=== PATIENT | male | born 1960 | race Caucasian/White ===

== ENCOUNTER 2022-05-30 06:25 | Inpatient (IN) ==
[2022-05-30] MEDS ORDERED: LORazepam 2 MG/ML VIAL IV ONE (06:47)
[2022-05-30] MEDS ORDERED: PIPERACILLIN SODIUM/TAZOBACTAM 3.375 GM in DEXTROSE 5% IN WATER 50 ML IV ONE (06:48)
[2022-05-30] MEDS ORDERED: VANCOMYCIN PER PHARMACY IV ONE (06:48)
[2022-05-30 06:49] LABS: POC Calcium, Ionized 1.14 (1.16-1.32); POC Creatinine 1.1 (0.6-1.2)
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
--- NOTE | 2022-05-30 07:57 | Emergency Department Note ---
ED Note Addendum Note Addendum: Received signout on this 61-year-old male with shortness of breath from my colleague at 7 AM. Patient with COPD and alcoholism presented with shortness of breath and a pulse ox in the field of 50% and 80's% here in the ER on room air. Patient normally uses oxygen at night. Patient was tachycardic at the 164 rate on BiPAP at 100% O2. Patient received 1 mg of Ativan. Chest x-ray showed right middle lobe infiltrate. I reevaluated the patient at 0730. The heart rate had decreased from 1 64-1 40. His O2 sat was 95% on 90% which was reduced from 100%. He still on BiPAP. I reevaluated the patient at 0835. His heart rate had now come down to 124. His pulse ox was 97% and that was on 85% oxygen. Patient stated that he felt better. He was not diaphoretic. I reevaluated the patient at 0910. Heart rate has now come down to 117. Pulse ox is 97% on 85% O2. Patient states he is feeling better. I have placed a call to the house manager that the patient will need to be admitted for pneumonia with respiratory failure on BiPAP. I informed Dr. Carmen at this time and he requested that I inform house manager. [id number]: supervisor production department and Dr. Carmen called back. Patient was excepted for admission and will go to the ICU because he is on BiPAP. Dr. Pratt requested and I ordered an alcohol level. At this time the patient's pulse ox is 98% on 60% oxygen via BiPAP with a pulse of 110. This was a critical care case critical care time exceeded 30 minutes exclusive of all procedures. Patient required critical care because of his respiratory failure requiring highest level of care and attention. This critical care note is not in addition to any critical care note written by Dr. Givens but if he did not include a critical care note then here is the critical care note.
[2022-05-30] MEDS ORDERED: VANCOMYCIN 1,500 MG in 0.9 % SODIUM CHLORIDE 500 ML IV ONE (08:00)
[2022-05-30 08:18] LABS: ALT/SGPT 12 U/L (<40); AST/SGOT 17 U/L (<40); Albumin 3.4 gm/dL (3.2-5.2); Alkaline Phosphatase 119 U/L (39-117); Bilirubin,Direct 0.3 mg/dL (<0.3); Bilirubin,Total 0.7 mg/dL (0.1-1.0); Globulin 3.4 gm/dL (2.2-3.7)
[2022-05-30 08:19] LABS: proBNP 423.7 pg/mL (<125.0)
--- NOTE | 2022-05-30 08:38 | XRay Report ---
HISTORY: Short of breath, fever and weakness FINDINGS: There is a large consolidating infiltrate in the central portion of the right lung. A more diffuse alveolar infiltrate is seen in the right lower lobe. The left lung is clear but hyperinflated. The heart size is normal. No pleural effusion is detected. The infiltrate is new since 02/20/22 IMPRESSION: Severe right-sided pneumonia, predominantly in a perihilar distribution Interpreted and Authenticated by: Neri Alonso 05/30/22
[2022-05-30 09:43] LABS: Basophils # (Auto) 0.11 K/mcL (0.00-0.30); Basophils % (Auto) 0.4 % (0.0-2.0); Eosinophils # (Auto) 0.38 K/mcL (0.00-0.70); Eosinophils % (Auto) 1.2 % (0.0-7.0); Hematocrit 41.4 % (40.1-51.0); Hemoglobin 13.8 g/dL (13.7-17.5); Lymphocytes # (Auto) 3.67 K/mcL (1.50-4.80); Lymphocytes % (Auto) 11.7 % (15.5-49.0); Mean Cell Volume 100.7 fL (80.0-100.0); Mean Corpuscular HGB Conc 33.3 g/dL (31.0-36.0); Mean Platelet Volume 10.4 fL (8.8-12.5); Monocytes # (Auto) 4.67 K/mcL (0.10-0.90); Monocytes % (Auto) 14.9 % (1.0-12.0); Platelet Count 324 K/mcL (140-440); RBC 4.11 M/mcL (4.63-6.08); Red Cell Distribution Width 12.7 % (11.5-14.5); WBC 31.4 K/mcL (4.5-11.0)
[2022-05-30 10:56] LABS: Neutrophils % (Auto) 69.8 % (38.0-78.0)
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
[2022-05-30 12:58] LABS: Alcohol, Blood < 10.0 mg/dL; Alcohol,Blood < 0.010 gm/dL (<0.010)
[2022-05-30] MEDS ORDERED: ACETAMINOPHEN 325 MG TABLET PO PRN (14:30)
[2022-05-30] MEDS ORDERED: HALOPERIDOL LACTATE 5 MG/ML VIAL IV PRN (14:30)
[2022-05-30] MEDS ORDERED: LORazepam 2 MG/ML VIAL IV PRN ×2 (14:30)
[2022-05-30] MEDS ORDERED: POTASSIUM CHLORIDE 20 MEQ, MAGNESIUM SULFATE 16.24 MEQ, THIAMINE 100 MG, MVI, ADULT NO.... IV SCH (14:30)
[2022-05-30] MEDS ORDERED: 0.9 % SODIUM CHLORIDE 10 ML SYRINGE IV SCH (14:30)
[2022-05-30] MEDS ORDERED: cloNIDine HCL 0.1 MG TABLET PO PRN (14:30)
[2022-05-30] MEDS ORDERED: ONDANSETRON 4 MG/2 ML VIAL IV PRN (14:30)
[2022-05-30] MEDS ORDERED: VANCOMYCIN PER PHARMACY IV SCH (14:30)
[2022-05-30] MEDS: IPRATROPIUM/ALBUTEROL 3 ML AMPUL.NEB NEB SCH ×3 (15:04→23:09)
[2022-05-30] MEDS: POTASSIUM CHLORIDE 20 MEQ, MAGNESIUM SULFATE 16.24 MEQ, THIAMINE 100 MG, MVI, ADULT NO.... IV ONE ×2 (15:07→15:25)
[2022-05-30] MEDS: 0.9 % SODIUM CHLORIDE 10 ML SYRINGE IV SCH ×2 (15:07→20:24)
[2022-05-30] MEDS: methylPREDNISolone SOD SUCC 125 MG/2 ML VIAL IV SCH ×2 (15:09→21:53)
[2022-05-30] MEDS ORDERED: POTASSIUM CHLORIDE 20 MEQ, MAGNESIUM SULFATE 16.24 MEQ, THIAMINE 100 MG, MVI, ADULT NO.... IV ONE (15:30)
[2022-05-30] MEDS: PIPERACILLIN SODIUM/TAZOBACTAM 3.375 GM in DEXTROSE 5% IN WATER 50 ML IV SCH ×3 (15:54→23:41)
[2022-05-30] MEDS: 0.9 % SODIUM CHLORIDE 1,000 ML IV SCH (16:42)
[2022-05-30] MEDS ORDERED: HYDROcodone/APAP 5/325MG TABLET PO PRN (19:34)
[2022-05-30] MEDS: Budesonide-Glycopyr-Formoterol [Breztri] Inhaler INH SCH (19:37)
[2022-05-30] MEDS: ACAMPROSATE 333 MG PO SCH (19:41)
[2022-05-30] MEDS: DOCUSATE SODIUM 100 MG CAPSULE PO SCH (20:13)
[2022-05-30] MEDS: ATORVASTATIN 10 MG TABLET PO SCH (20:23)
[2022-05-30] MEDS: diphenhydrAMINE 25 MG CAPSULE PO PRN (20:23)
[2022-05-30] MEDS: GABAPENTIN 300 MG CAPSULE PO SCH (20:23)
[2022-05-30] MEDS: VANCOMYCIN 1,500 MG in 0.9 % SODIUM CHLORIDE 500 ML IV SCH (20:24)
[2022-05-31] MEDS: 0.9 % SODIUM CHLORIDE 1,000 ML IV SCH ×4 (00:32→21:46)
[2022-05-31 00:44] LABS: Amphetamine Screen,Urine None detected; Barbiturate Screen,Urine None detected; Benzodiazepines Screen,Urine None detected; Cannabinoid Screen,Urine None detected; Cocaine Screen,Urine None detected; Opiate Screen,Urine None detected; Oxycodone, Urine Screen None detected; Phencyclidine Screen,Urine None detected
[2022-05-31] MEDS: IPRATROPIUM/ALBUTEROL 3 ML AMPUL.NEB NEB SCH ×6 (02:36→22:44)
[2022-05-31] MEDS: guaiFENesin/DEXTROMETHORPHAN 5ML UD CUP PO PRN ×5 (04:02→23:41)
[2022-05-31] MEDS: PIPERACILLIN SODIUM/TAZOBACTAM 3.375 GM in DEXTROSE 5% IN WATER 50 ML IV SCH ×4 (05:47→23:45)
[2022-05-31] MEDS: methylPREDNISolone SOD SUCC 125 MG/2 ML VIAL IV SCH ×3 (05:47→21:47)
[2022-05-31] MEDS: 0.9 % SODIUM CHLORIDE 10 ML SYRINGE IV SCH ×3 (05:48→20:42)
--- NOTE | 2022-05-31 07:01 | Internal Med Progress Note ---
SUBJECTIVE Subjective Patient information: Note initiated : 05/31/22 at 6:55 am Service Date, if different from initiated Date: [] Patient: Juan Oliver a 61 y/o M admitted on 05/30/22 for Shortness of breath. Chief Complaint: [] Interval history: Mr. Oliver is a 61 year old M he is history of alcoholism, COPD, depression/anxiety, hyper triglyceridemia, presenting with 1 day history of acute onset shortness of breath, with associated productive cough and respiratory wheezings. No prior similar episode. Last night he had acute onset shortness of breath with associated productive cough and respiratory wheezings. He is complaining of yellow sputum productions. He denies any subjective fever, chills, or diaphoresis. He denies any chest pain or palpitations. He drink bourbon on a daily basis he drinks about 2 pints per day with last drink yesterday. He called EMS for acute onset shortness of breath and when EMS arrived, he was found to have oxygen saturations in the 50s. When he arrived to our ED during the middle of the night, he is oxygen saturations was found to be in the 80s. He was started on BiPAP. Chest x-ray showing ri ght-sided pneumonia. Madison negative, COVID PCR pending. Serum alcohol level pending. Admission request was called for acute respiratory failure with hypoxia with differential diagnosis of committee acquired pneumonia versus aspiration pneumonia with associated COPD exacerbations and potential alcohol withdrawal. 05/31: Patient is still on BiPAP, only tolerated off the BiPAP for couple minutes at a time multiple times yesterday and overnight. Current BiPAP setting 14/6 cmH2), RR 8, FiO2 35%. CoVID PCR negative. Pass swallowing evaluation, tolerating food fine. Blood cultures no growth to date. Afebrile overnight. CIWA score 0. Patient is feeling improving degree of shortness of breath. He is complaining of cough but denies any respiratory wheezing. He is complaining of shaking chil ls but denies any subjective fever or diaphoresis. He denies insomnia. He denies agitations or anxiety. He is showing mild bilateral head shakes. He denies any nausea vomiting. No reported seizures overnight. Continue to wean BiPAP as tolerated by the patient's. Continue vancomycin and Zosyn and IV fluid for pneumonia. Continue Solu-Medrol and DuoNeb breathing treatment for COPD exacerbations. Continue CIWA protocol. Pending physical therapy evaluation and treatment. We will keep the patient in the ICU. Constitutional Vitals: Vital Signs Temp Pulse Resp BP Pulse Ox O2 Del Method O2 Flow Rate 36.3 C 93 H 25 H 97/74 96 5 05/31/22 04:01 05/31/22 06:01 05/31/22 06:01 05/31/22 06:01 05/31/22 06:01 05/31/22 04:01 05/30/22 18:01 Period Temp Pulse Resp BP Sys/Bhatt Pulse Ox O2 Del Method O2 Flow Rate Last 24 Hr 36.2 C-37.5 C 82-162 18-40 86-128/62-107 93-100 BiPAP-High Flow Nasal Cannula, Bubble Humidifier 5 Intake and Output 05/30/22 05/31/22 05/31/22 19:59 03:59 11:59 Intake Total 650 2565 50 Output Total 375 1000 Balance 275 1565 50 Weight 84.005 kg 84.141 kg Intake & Output: Intake & Output 05/30/22 05/31/22 05/31/22 19:59 03:59 11:59 Intake Total 650 2565 50 Output Total 375 1000 Balance 275 1565 50 Weight 84.005 kg 84.141 kg Intake: IV 50 1625 50 Zosyn 3.375 gm In Dextrose 5% 50 100 50 in Water 50 ml @ 100 mls/hr IV Q6H [facility] Rx#:[id number] Potassium Chloride 20 Meq 1025 Magnesium Sulfate 16.24 Meq Vitamin B1 100 mg Infuvite Adult 10 ml In Sodium Chloride 0.9% 1,000 ml @ 100 mls/hr IV . [id number] Rx#:[id number] Vancomycin 1,500 mg In Sodium 500 Chloride 0.9% 500 ml @ 333.3 mls/hr IV Q12H [facility] Rx#: [id number] Oral 600 940 Output: Void Amount 375 1000 # of times incontinent of urine 0 Other: Meal Dinner Percent of Meal Consumed 25% Feeding Ability Independent Urine Appearance Clear Clear Urine Color Light Megha Dark Yellow # Voids 0 # Bowel Movements 0 # of times incontinent of 0 Bowels General appearance: cooperative and no acute distress Head Head exam: Present atraumatic and normal inspection Eye Eye exam: Present normal appearance ENT ENT exam: Present mucous membranes moist, normal exam and normal external ear exam Additional comments: BiPAP Neck Neck exam: Present normal inspection Respiratory Respiratory exam: Present rhonchi and wheezes Cardiovascular Cardiovascular exam: Present normal rate and rhythm GI/Abdominal GI/Abdominal exam: Present normal bowel sounds Back Exam Back exam: Present normal inspection Neurological Exam Neurological exam: Present alert and oriented X3 Skin Skin exam: Present intact and warm OBJ DATA Labs CBC & Chem 7: 05/30/22 07:08 05/31/22 05:13 Labs: Abnormal Lab Results 05/30/22 05/30/22 05/30/22 07:08 07:08 07:08 WBC 31.4 H* RBC 4.11 L MCV 100.7 H Immature Gran % (Auto) 2.0 H Lymph % (Auto) 11.7 L Banks % (Auto) 14.9 H Banks # (Auto) 4.67 H Immature Gran # 0.64 H Absolute Neutrophils 21.91 H POC Sodium POC Chloride POC Glucose POC WB Ioniz Calcium Direct Bilirubin 0.3 H Alkaline Phosphatase 119 H NT-Pro-B Natriuret Pep 423.7 H Procalcitonin 1.98 H 05/30/22 06:45 WBC RBC MCV Immature Gran % (Auto) Lymph % (Auto) Banks % (Auto) Banks # (Auto) Immature Gran # Absolute Neutrophils POC Sodium 129 L POC Chloride 94 L POC Glucose 157 H POC WB Ioniz Calcium 1.14 L Direct Bilirubin Alkaline Phosphatase NT-Pro-B Natriuret Pep Procalcitonin Meds: Medications Acetaminophen (Acetaminophen 325 Mg Tablet) 650 mg PO Q4-6HP PRN; Protocol PRN Reason: Per Pain Protocol/Fever > 101 Hydrocodone Bitart/Acetaminophen (Hydrocodone/Apap 5/325mg Tablet) 0.5 tab PO QDAY PRN PRN Reason: Pain Albuterol/Ipratropium (Ipratropium/Albuterol 3 Ml Ampul.Neb) 3 ml NEB Q4HRT [facility] Last Admin: 05/31/22 06:55 Dose: 3 ml Atorvastatin Calcium (Atorvastatin 10 Mg Tablet) 10 mg PO HS [facility] Last Admin: 05/30/22 20:23 Dose: 10 mg Clonidine HCl (Clonidine Hcl 0.1 Mg Tablet) 0.1 mg PO Q4HP PRN PRN Reason: ALC Diphenhydramine HCl (Diphenhydramine 25 Mg Capsule) 50 mg PO HSP PRN PRN Reason: Sleep Last Admin: 05/30/22 20:23 Dose: 50 mg Docusate Sodium (Docusate Sodium 100 Mg Capsule) 100 mg PO BID [facility] Last Admin: 05/30/22 20:13 Dose: Not Given Enoxaparin Sodium (Enoxaparin 40 Mg/0.4 Ml Syringe) 40 mg SQ DAILY [facility] Fenofibrate (Fenofibrate 43 Mg Capsule) 43 mg PO DAILY [facility] Fluoxetine HCl (Fluoxetine Hcl 20 Mg Capsule) 20 mg PO QDAY [facility] Folic Acid (Folic Acid 1 Mg Tablet) 1 mg PO DAILY [facility] Gabapentin (Gabapentin 300 Mg Capsule) 300 mg PO TID [facility] Last Admin: 05/30/22 20:23 Dose: 300 mg Guaifenesin (Guaifenesin/Dextromethorphan Oral Veronica) 10 ml PO Q4HP PRN PRN Reason: Cough Last Admin: 05/31/22 04:02 Dose: 10 ml Haloperidol Lactate (Haloperidol Lactate 5 Mg/Ml Vial) 0.5 mg IV Q2HP PRN PRN Reason: Alcohol Withdrawal/Assess CIWA Sodium Chloride (Sodium Chloride 0.9%) 1,000 mls @ 100 mls/hr IV .Q10H [facility] Last Admin: 05/31/22 01:12 Dose: 100 mls/hr Piperacillin Sod/Tazobactam (Sod 3.375 gm/ Dextrose) 50 mls @ 100 mls/hr IV Q6H [facility]; Protocol Last Infusion: 05/31/22 06:23 Dose: Infused Vancomycin HCl 1,500 mg/ (Sodium Chloride) 500 mls @ 333.3 mls/hr IV Q12H [facility] Last Infusion: 05/30/22 22:00 Dose: Infused Iron Carb/Multivit/[facility]/Folic Acid (Multivit,Ther Iron,Ca,Fa & Min 1 Tablet) 1 tab PO DAILY [facility] Lorazepam (Lorazepam 2 Mg/Ml Vial) 0 mg IV UD PRN; Protocol PRN Reason: Alcohol Withdrawal/Assess CIWA Lorazepam (Lorazepam 2 Mg/Ml Vial) 2 mg IV Q2-4HP PRN PRN Reason: Seizure Activity Methylprednisolone Sodium Succinate (Methylprednisolone Sod Succ 125 Mg/2 Ml Vial) 80 mg IV Q8 [facility] Last Admin: 05/31/22 05:47 Dose: 80 mg Omeprazole (Omeprazole 20 Mg Capsule) 20 mg PO DAILY [facility] Ondansetron HCl (Ondansetron 4 Mg/2 Ml Vial) 4 mg IV Q4-6HP PRN; Protocol PRN Reason: Nausea And Vomiting Pantoprazole Sodium (Pantoprazole 40 Mg Tablet) 40 mg PO QAMAC [facility] Acamprosate 333 Mg Tablet,Delayed Release (Dr/Ec) 2 dose PO BID [facility] Last Admin: 05/30/22 19:41 Dose: Not Given Budesonide-Glycopyr- Formoterol [Breztri] Inhaler 2 dose INH BID [facility] Last Admin: 05/30/22 19:37 Dose: 2 dose Senna (Sennosides 1 Tablet) 1 tab PO DAILY [facility] Sodium Chloride (0.9 % Sodium Chloride 10 Ml Syringe) 10 ml IV Q8 [facility] Last Admin: 05/31/22 05:48 Dose: 10 ml Thiamine HCl (Thiamine 100 Mg Tablet) 100 mg PO QDAY [facility] Vancomycin HCl (Vancomycin Per Pharmacy) 1 order IV UD [facility]; Protocol A/P Assessment and plan (1) Acute respiratory failure with hypoxia: Status: Acute (2) Delirium tremens: Status: Acute (3) Aspiration pneumonia: Status: Acute (4) Depression: Status: Chronic Qualifiers: Depression Type: unspecified Qualified Code(s): F32.9 - Major dep ressive disorder, single episode, unspecified (5) Anxiety: Status: Chronic (6) COPD exacerbation: Status: Acute (7) Hypertriglyceridemia: Status: Chronic Narrative A/P Narrative: Assessment and Plans: 1. Acute respiratory failure with hypoxia: DDx: Community acquired pneumonia, aspiration pneumonia, CoVID pneumonia, COPD with exacerbation Inpatient ICU Passed bedside swallowing evaluation, tolerating feed Supplemental oxygen therapy, currently in BiPAP 14/6 cmH2o, RR 8, FiO2 35%. Wean down/off BiPAP as tolerated by patient CoVID PCR negative VBG pending Serial lactic acid 1.9 Procalcitonin level 1.98 Blood culture, no growth to date cbc w/ auto diff in the morning to trend WBC MRSA screening pending Vancomycin Zosyn Solu-Medrol DuoNEB [facility] Physical therapy evaluation and treatment 2. History of alcohol abuse with impending delirium tremens: Serum alcohol level Urine drug screen all negative [place] protocol with banana bags x1 Ativan IV as needed seizure activities Acamprosate garden center manager referral 3. Depression/Anxiety: Fluoxetine Gabapentin 4. Hypertriglyceridemia: Fenofibrate Crestor GI ppx: PPI DVT ppx: Lovenox Code status: Full Prognosis: guarded Disposition: inpatient ICU; PT Critical Care Time: 60min Time Spent With Patient Time: Total time spent is greater than 50% in coordination of care (as documented) at patient's floor/unit and/or counseling patient: Critical Care Time: Yes Total Critical Care Time: 60 QUALITY VTE Deep Vein Thrombosis/Pulmonary Embolism Present on Admission: No
[2022-05-31 07:06] LABS: ALT/SGPT 18 U/L (<40); AST/SGOT 26 U/L (<40); Albumin 2.2 gm/dL (3.2-5.2); Albumin/Globulin Ratio 0.6 (1.0-2.3); Alkaline Phosphatase 77 U/L (39-117); Bilirubin,Total 0.4 mg/dL (0.1-1.0); Blood Urea Nitrogen 18 mg/dL (8-23); Calcium 8.4 mg/dL (8.6-10.4); Carbon Dioxide 25 mmol/L (22-30); Chloride 99 mmol/L (96-108); Globulin 3.5 gm/dL (2.2-3.7); Glomerular Filtration Rate 94; Glucose 165 mg/dL (70-105); Phosphorous 1.7 mg/dL (2.5-4.5)
[2022-05-31 07:17] LABS: Basophils # (Auto) 0.04 K/mcL (0.00-0.30); Basophils % (Auto) 0.6 % (0.0-2.0); Eosinophils # (Auto) 0 K/mcL (0.00-0.70); Eosinophils % (Auto) 0 % (0.0-7.0); Hematocrit 37.1 % (40.1-51.0); Hemoglobin 11.8 g/dL (13.7-17.5); Lymphocytes # (Auto) 0.35 K/mcL (1.50-4.80); Lymphocytes % (Auto) 5.1 % (15.5-49.0); Mean Cell Volume 104.8 fL (80.0-100.0); Mean Corpuscular HGB Conc 31.8 g/dL (31.0-36.0); Monocytes # (Auto) 0.65 K/mcL (0.10-0.90); Monocytes % (Auto) 9.5 % (1.0-12.0); Platelet Count 164 K/mcL (140-440); RBC 3.54 M/mcL (4.63-6.08); Red Cell Distribution Width 12.6 % (11.5-14.5); WBC 6.9 K/mcL (4.5-11.0)
[2022-05-31] MEDS: OMEPRAZOLE 20 MG CAPSULE PO SCH (07:26)
[2022-05-31] MEDS: ACAMPROSATE 333 MG PO SCH (07:26)
[2022-05-31] MEDS ORDERED: PANTOPRAZOLE 40 MG TABLET PO SCH (07:30)
[2022-05-31] MEDS: THIAMINE 100 MG TABLET PO SCH (08:06)
[2022-05-31] MEDS: FENOFIBRATE 43 MG CAPSULE PO SCH (08:06)
[2022-05-31] MEDS: SENNOSIDES 1 TABLET PO SCH (08:07)
[2022-05-31] MEDS: FOLIC ACID 1 MG TABLET PO SCH (08:07)
[2022-05-31] MEDS: DOCUSATE SODIUM 100 MG CAPSULE PO SCH ×2 (08:07→19:27)
[2022-05-31] MEDS: GABAPENTIN 300 MG CAPSULE PO SCH ×3 (08:07→20:41)
[2022-05-31] MEDS: ENOXAPARIN 40 MG/0.4 ML SYRINGE SQ SCH (08:07)
[2022-05-31] MEDS: FLUoxetine HCL 20 MG CAPSULE PO SCH (08:07)
[2022-05-31] MEDS: MULTIVIT,THER IRON,CA,FA & MIN 1 TABLET PO SCH (08:07)
[2022-05-31 08:23] LABS: Neutrophils % (Auto) 84.2 % (38.0-78.0)
[2022-05-31 08:39] LABS: ABG Methemoglobin 0 % (0.4-1.5); Total Hemoglobin 13.1 gm/Dl (13.5-16.5); VBG Base Excess 0 (-2-3); VBG HCO3 23.2 mmol/L (24.0-28.0); VBG Oxygen Saturation 85.4 % (40.0-70.0); VBG PCO2 34.2 mmHg (41.0-51.0); VBG PH 7.45 U (7.32-7.42); VBG PO2 52.2 mmHg (25.0-40.0); VBG Total CO2 24.2 mmol/L (25.0-29.0)
[2022-05-31] MEDS: Budesonide-Glycopyr-Formoterol [Breztri] Inhaler INH SCH ×2 (08:47→23:45)
[2022-05-31] MEDS: VANCOMYCIN 1,500 MG in 0.9 % SODIUM CHLORIDE 500 ML IV SCH (09:31)
[2022-05-31] MEDS: ATORVASTATIN 10 MG TABLET PO SCH (20:41)
[2022-05-31] MEDS: diphenhydrAMINE 25 MG CAPSULE PO PRN (20:41)
[2022-06-01] MEDS: IPRATROPIUM/ALBUTEROL 3 ML AMPUL.NEB NEB SCH ×6 (03:00→22:53)
[2022-06-01] MEDS: guaiFENesin/DEXTROMETHORPHAN 5ML UD CUP PO PRN ×2 (03:36→09:40)
[2022-06-01] MEDS: methylPREDNISolone SOD SUCC 125 MG/2 ML VIAL IV SCH ×3 (05:24→21:12)
[2022-06-01] MEDS: 0.9 % SODIUM CHLORIDE 10 ML SYRINGE IV SCH ×3 (05:24→21:12)
[2022-06-01] MEDS: PIPERACILLIN SODIUM/TAZOBACTAM 3.375 GM in DEXTROSE 5% IN WATER 50 ML IV SCH ×3 (05:25→17:15)
[2022-06-01 06:37] LABS: Basophils # (Auto) 0.01 K/mcL (0.00-0.30); Basophils % (Auto) 0.2 % (0.0-2.0); Eosinophils # (Auto) 0 K/mcL (0.00-0.70); Eosinophils % (Auto) 0 % (0.0-7.0); Hematocrit 32.5 % (40.1-51.0); Hemoglobin 10.7 g/dL (13.7-17.5); Lymphocytes # (Auto) 0.39 K/mcL (1.50-4.80); Lymphocytes % (Auto) 6.5 % (15.5-49.0); Mean Cell Volume 102.5 fL (80.0-100.0); Mean Corpuscular HGB Conc 32.9 g/dL (31.0-36.0); Mean Platelet Volume 10.9 fL (8.8-12.5); Monocytes # (Auto) 0.55 K/mcL (0.10-0.90); Monocytes % (Auto) 9.1 % (1.0-12.0); Neutrophils % (Auto) 82.5 % (38.0-78.0); Platelet Count 179 K/mcL (140-440); RBC 3.17 M/mcL (4.63-6.08); Red Cell Distribution Width 12.4 % (11.5-14.5)
[2022-06-01 07:02] LABS: Phosphorous 1.5 mg/dL (2.5-4.5)
--- NOTE | 2022-06-01 07:04 | EKG ---
[facility] Test Date: 2022-05-30 Pat Name: Juan Oliver Department: ED Room: Gender: Male Vat Overhauler: PARKER : 1960 Requested By: Greg Givens Order Number: [id number] Reading MD: Chris Alonso M.D. Measurements Intervals [place] Rate: 159 P: 85 ND: 155 QRS: -63 QRSD: 105 T: 37 QT: 311 QTc: 507 Interpretive Statements Supraventricular tachycardia Ventricular premature complex Possible Inferior infarct, old Electronically Signed On 06-01-2022 7:04:28 PST by Chris Alonso M.D. /store/[id number]
[2022-06-01 07:07] LABS: ALT/SGPT 24 U/L (<40); AST/SGOT 26 U/L (<40); Albumin 2.3 gm/dL (3.2-5.2); Albumin/Globulin Ratio 0.7 (1.0-2.3); Alkaline Phosphatase 61 U/L (39-117); Bilirubin,Total 0.3 mg/dL (0.1-1.0); Blood Urea Nitrogen 22 mg/dL (8-23); Calcium 8.3 mg/dL (8.6-10.4); Carbon Dioxide 25 mmol/L (22-30); Chloride 104 mmol/L (96-108); Globulin 3.2 gm/dL (2.2-3.7); Glomerular Filtration Rate 100; Glucose 149 mg/dL (70-105)
[2022-06-01] MEDS: DOCUSATE SODIUM 100 MG CAPSULE PO SCH ×2 (08:42→21:14)
[2022-06-01] MEDS: SENNOSIDES 1 TABLET PO SCH (08:43)
[2022-06-01] MEDS: FOLIC ACID 1 MG TABLET PO SCH (08:50)
[2022-06-01] MEDS: MULTIVIT,THER IRON,CA,FA & MIN 1 TABLET PO SCH (08:50)
[2022-06-01] MEDS: OMEPRAZOLE 20 MG CAPSULE PO SCH (08:50)
[2022-06-01] MEDS: FENOFIBRATE 43 MG CAPSULE PO SCH (08:50)
[2022-06-01] MEDS: FLUoxetine HCL 20 MG CAPSULE PO SCH (08:50)
[2022-06-01] MEDS: ENOXAPARIN 40 MG/0.4 ML SYRINGE SQ SCH (08:51)
[2022-06-01] MEDS: THIAMINE 100 MG TABLET PO SCH (08:51)
[2022-06-01] MEDS: GABAPENTIN 300 MG CAPSULE PO SCH ×3 (08:51→21:11)
[2022-06-01] MEDS: 0.9 % SODIUM CHLORIDE 1,000 ML IV SCH (08:55)
[2022-06-01] MEDS: Budesonide-Glycopyr-Formoterol [Breztri] Inhaler INH SCH ×2 (09:03→21:26)
--- NOTE | 2022-06-01 09:29 | Internal Med Progress Note ---
SUBJECTIVE Subjective Patient information: Note initiated : 06/01/22 at 9:26 am Service Date, if different from initiated Date: [] Patient: Juan Oliver a 61 y/o M admitted on 05/30/22 for Shortness of breath. Chief Complaint: [] Interval history: Mr. Oliver is a 61 year old M he is history of alcoholism, COPD, depression/anxiety, hyper triglyceridemia, presenting with 1 day history of acute onset shortness of breath, with associated productive cough and respiratory wheezings. No prior similar episode. Last night he had acute onset shortness of breath with associated productive cough and respiratory wheezings. He is complaining of yellow sputum productions. He denies any subjective fever, chills, or diaphoresis. He denies any chest pain or palpitations. He drink bourbon on a daily basis he drinks about 2 pints per day with last drink yesterday. He called EMS for acute onset shortness of breath and when EMS arrived, he was found to have oxygen saturations in the 50s. When he arrived to our ED during the middle of the night, he is oxygen saturations was found to be in the 80s. He was started on BiPAP. Chest x-ray showing ri ght-sided pneumonia. [place] negative, COVID PCR pending. Serum alcohol level pending. Admission request was called for acute respiratory failure with hypoxia with differential diagnosis of committee acquired pneumonia versus aspiration pneumonia with associated COPD exacerbations and potential alcohol withdrawal. 05/31: Patient is still on BiPAP, only tolerated off the BiPAP for couple minutes at a time multiple times yesterday and overnight. Current BiPAP setting 14/6 cmH2), RR 8, FiO2 35%. CoVID PCR negative. Pass swallowing evaluation, tolerating food fine. Blood cultures no growth to date. Afebrile overnight. CIWA score 0. Patient is feeling improving degree of shortness of breath. He is complaining of cough but denies any respiratory wheezing. He is complaining of shaking chil ls but denies any subjective fever or diaphoresis. He denies insomnia. He denies agitations or anxiety. He is showing mild bilateral head shakes. He denies any nausea vomiting. No reported seizures overnight. Continue to wean BiPAP as tolerated by the patient's. Continue vancomycin and Zosyn and IV fluid for pneumonia. Continue Solu-Medrol and DuoNeb breathing treatment for COPD exacerbations. Continue CIWA protocol. Pending physical therapy evaluation and treatment. We will keep the patient in the ICU. 06/01: CIWA score 3 as of this morning. Patient was BiPAP INDEPENDENT, and currently on room air. c/o improving degree of shortness of breath. Denies cough or wheezing at the morning. Transfer from ICU to [facility] telemetry. Continue CIWA protocol. MRSA screening negative: d/c Vancomycin. Saline lock. Continue Zosyn. Continue Solu-medrol. Continue DuoNEB. Physical therapy evaluation and treatment. Constitutional Vitals: Vital Signs Temp Pulse Resp BP Pulse Ox O2 Del Method O2 Flow Rate 36.7 C 104 H 55 H 104/76 95 0.5 06/01/22 08:00 06/01/22 09:00 06/01/22 09:00 06/01/22 09:00 06/01/22 09:00 06/01/22 08:00 06/01/22 08:00 Period Temp Pulse Resp BP Sys/Bhatt Pulse Ox O2 Del Method O2 Flow Rate Last 24 Hr 36.2 C-37.2 C 86-106 16-55 92-118/58-76 90-97 BiPAP-Room Air, BiPAP 0.5-1 Intake and Output 05/31/22 06/01/22 06/01/22 19:59 03:59 11:59 Intake Total 8054 723 9462 Output Total 400 950 Balance 1525 -175 1350 Weight 86.324 kg Intake & Output: Intake & Output 05/31/22 06/01/22 06/01/22 19:59 03:59 11:59 Intake Total 4302 628 3426 Output Total 400 950 Balance 1525 -175 1350 Weight 86.324 kg Intake: IV 273 588 7764 Sodium Chloride 0.9% 1,000 ml @ 139 063 5112 100 mls/hr IV .Q10H SERAFIN Rx#: [id number] Zosyn 3.375 gm In Dextrose 5% 50 50 50 in Water 50 ml @ 100 mls/hr IV Q6H SERAFIN Rx#:[id number] Oral 1300 300 300 Output: Void Amount 400 950 Other: Meal Dinner Percent of Meal Consumed 75% Feeding Ability Independent Urine Color Light Megha Stool Size Large Stool Color Brown Stool Consistency Loose # Bowel Movements 1 Head Head exam: Present atraumatic and normal inspection Eye Eye exam: Present normal appearance ENT ENT exam: Present mucous membranes moist, normal exam and normal external ear exam Neck Neck exam: Present normal inspection Respiratory Respiratory exam: Present normal respiratory exam and rhonchi Cardiovascular Cardiovascular exam: Present normal rate and rhythm GI/Abdominal GI/Abdominal exam: Present normal bowel sounds Back Exam Back exam: Present normal inspection Neurological Exam Neurological exam: Present alert and oriented X3 Skin Skin exam: Present intact and warm OBJ DATA Labs CBC & Chem 7: 06/01/22 05:16 06/01/22 05:16 Labs: Abnormal Lab Results 06/01/22 06/01/22 05/31/22 05:16 05:16 08:18 WBC RBC 3.17 L Hgb 10.7 L Hct 32.5 L MCV 102.5 H Immature Gran % (Auto) 1.7 H Neut % (Auto) 82.5 H Lymph % (Auto) 6.5 L [place] % (Auto) Lymph # (Auto) 0.39 L [place] # (Auto) Immature Gran # 0.10 H Absolute Neutrophils ABG Methemoglobin 0 L VBG pH 7.45 H VBG pCO2 34.2 L VBG pO2 52.2 H VBG HCO3 23.2 L VBG Total CO2 24.2 L VBG O2 Saturation 85.4 H Carboxyhemoglobin 4.7 H Total Hemoglobin 13.1 L POC Sodium Sodium POC Chloride Anion Gap 6.0 L Glucose 149 H POC Glucose Calcium 8.3 L POC WB Ioniz Calcium Phosphorus 1.5 L Magnesium Direct Bilirubin Alkaline Phosphatase NT-Pro-B Natriuret Pep Total Protein 5.5 L Albumin 2.3 L Albumin/Globulin Ratio 0.7 L Procalcitonin 05/31/22 05/31/22 05/30/22 05:13 05:13 07:08 WBC 31.4 H* RBC 3.54 L 4.11 L Hgb 11.8 L Hct 37.1 L MCV 104.8 H 100.7 H Immature Gran % (Auto) 0.6 H 2.0 H Neut % (Auto) 84.2 H Lymph % (Auto) 5.1 L 11.7 L [place] % (Auto) 14.9 H Lymph # (Auto) 0.35 L [place] # (Auto) 4.67 H Immature Gran # 0.64 H Absolute Neutrophils 21.91 H ABG Methemoglobin VBG pH VBG pCO2 VBG pO2 VBG HCO3 VBG Total CO2 VBG O2 Saturation Carboxyhemoglobin Total Hemoglobin POC Sodium Sodium 132 L POC Chloride Anion Gap Glucose 165 H POC Glucose Calcium 8.4 L POC WB Ioniz Calcium Phosphorus 1.7 L Magnesium 2.7 H Direct Bilirubin Alkaline Phosphatase NT-Pro-B Natriuret Pep Total Protein 5.7 L Albumin 2.2 L Albumin/Globulin Ratio 0.6 L Procalcitonin 05/30/22 05/30/22 05/30/22 07:08 07:08 06:45 WBC RBC Hgb Hct MCV Immature Gran % (Auto) Neut % (Auto) Lymph % (Auto) [place] % (Auto) Lymph # (Auto) [place] # (Auto) Immature Gran # Absolute Neutrophils ABG Methemoglobin VBG pH VBG pCO2 VBG pO2 VBG HCO3 VBG Total CO2 VBG O2 Saturation Carboxyhemoglobin Total Hemoglobin POC Sodium 129 L Sodium POC Chloride 94 L Anion Gap Glucose POC Glucose 157 H Calcium POC WB Ioniz Calcium 1.14 L Phosphorus Magnesium Direct Bilirubin 0.3 H Alkaline Phosphatase 119 H NT-Pro-B Natriuret Pep 423.7 H Total Protein Albumin Albumin/Globulin Ratio Procalcitonin 1.98 H Meds: Medications Acetaminophen (Acetaminophen 325 Mg Tablet) 650 mg PO Q4-6HP PRN; Protocol PRN Reason: Per Pain Protocol/Fever > 101 Last Admin: 06/01/22 07:05 Dose: 650 mg Hydrocodone Bitart/Acetaminophen (Hydrocodone/Apap 5/325mg Tablet) 0.5 tab PO QDAY PRN PRN Reason: Pain Albuterol/Ipratropium (Ipratropium/Albuterol 3 Ml Ampul.Neb) 3 ml NEB Q4HRT [facility] Last Admin: 06/01/22 07:10 Dose: 3 ml Atorvastatin Calcium (Atorvastatin 10 Mg Tablet) 10 mg PO HS [facility] Last Admin: 05/31/22 20:41 Dose: 10 mg Clonidine HCl (Clonidine Hcl 0.1 Mg Tablet) 0.1 mg PO Q4HP PRN PRN Reason: ALC Diphenhydramine HCl (Diphenhydramine 25 Mg Capsule) 50 mg PO HSP PRN PRN Reason: Sleep Last Admin: 05/31/22 20:41 Dose: 50 mg Docusate Sodium (Docusate Sodium 100 Mg Capsule) 100 mg PO BID [facility] Last Admin: 06/01/22 08:42 Dose: Not Given Enoxaparin Sodium (Enoxaparin 40 Mg/0.4 Ml Syringe) 40 mg SQ DAILY [facility] Last Admin: 06/01/22 08:51 Dose: 40 mg Fenofibrate (Fenofibrate 43 Mg Capsule) 43 mg PO DAILY [facility] Last Admin: 06/01/22 08:50 Dose: 43 mg Fluoxetine HCl (Fluoxetine Hcl 20 Mg Capsule) 20 mg PO QDAY [facility] Last Admin: 06/01/22 08:50 Dose: 20 mg Folic Acid (Folic Acid 1 Mg Tablet) 1 mg PO DAILY [facility] Last Admin: 06/01/22 08:50 Dose: 1 mg Gabapentin (Gabapentin 300 Mg Capsule) 300 mg PO TID [facility] Last Admin: 06/01/22 08:51 Dose: 300 mg Guaifenesin (Guaifenesin/Dextromethorphan Oral Veronica) 10 ml PO Q4HP PRN PRN Reason: Cough Last Admin: 06/01/22 03:36 Dose: 10 ml Haloperidol Lactate (Haloperidol Lactate 5 Mg/Ml Vial) 0.5 mg IV Q2HP PRN PRN Reason: Alcohol Withdrawal/Assess CIWA Piperacillin Sod/Tazobactam (Sod 3.375 gm/ Dextrose) 50 mls @ 100 mls/hr IV Q6H [facility]; Protocol Last Infusion: 06/01/22 06:13 Dose: Infused Iron Carb/Multivit/Quarter Trimmer/Folic Acid (Multivit,Ther Iron,Ca,Fa & Min 1 Tablet) 1 tab PO DAILY [facility] Last Admin: 06/01/22 08:50 Dose: 1 tab Lorazepam (Lorazepam 2 Mg/Ml Vial) 0 mg IV UD PRN; Protocol PRN Reason: Alcohol Withdrawal/Assess CIWA Lorazepam (Lorazepam 2 Mg/Ml Vial) 2 mg IV Q2-4HP PRN PRN Reason: Seizure Activity Methylprednisolone Sodium Succinate (Methylprednisolone Sod Succ 125 Mg/2 Ml Vial) 80 mg IV Q8 [facility] Last Admin: 06/01/22 05:24 Dose: 80 mg Omeprazole (Omeprazole 20 Mg Capsule) 20 mg PO DAILY [facility] Last Admin: 06/01/22 08:50 Dose: 20 mg Ondansetron HCl (Ondansetron 4 Mg/2 Ml Vial) 4 mg IV Q4-6HP PRN; Protocol PRN Reason: Nausea And Vomiting Budesonide-Glycopyr- Formoterol [Breztri] Inhaler 2 dose INH BID [facility] Last Admin: 06/01/22 09:03 Dose: 2 dose Senna (Sennosides 1 Tablet) 1 tab PO DAILY [facility] Last Admin: 06/01/22 08:43 Dose: Not Given Sodium Chloride (0.9 % Sodium Chloride 10 Ml Syringe) 10 ml IV Q8 [facility] Last Admin: 06/01/22 05:24 Dose: 10 ml Thiamine HCl (Thiamine 100 Mg Tablet) 100 mg PO QDAY [facility] Last Admin: 06/01/22 08:51 Dose: 100 mg ABG Interpretation ABG results: 05/31/22 08:18 ABG Methemoglobin 0 L VBG pH 7.45 H VBG pCO2 34.2 L VBG pO2 52.2 H VBG HCO3 23.2 L VBG Total CO2 24.2 L VBG O2 Saturation 85.4 H VBG Base Excess 0 A/P Assessment and plan (1) Acute respiratory failure with hypoxia: Status: Acute (2) Delirium tremens: Status: Acute (3) Aspiration pneumonia: Status: Acute (4) Depression: Status: Chronic Qualifiers: Depression Type: unspecified Qualified Code(s): F32.9 - Major d epressive disorder, single episode, unspecified (5) Anxiety: Status: Chronic (6) COPD exacerbation: Status: Acute (7) Hypertriglyceridemia: Status: Chronic Narrative A/P Narrative: Assessment and Plans: 1. Acute respiratory failure with hypoxia: DDx: Community acquired pneumonia, aspiration pneumonia, CoVID pneumonia, COPD with exacerbation Transfer from ICU to [facility] surg telemetry Passed bedside swallowing evaluation, tolerating feed Supplemental oxygen therapy, currently on room air CoVID PCR negative VBG pending Serial lactic acid 1.9 Procalcitonin level 1.98 Blood culture, no growth to date cbc w/ auto diff in the morning to trend WBC MRSA screening negative, d/c Vancomycin Zosyn Solu-Medrol day 07/17 DuoNEB [facility] Physical therapy evaluation and treatment 2. History of alcohol abuse with impending delirium tremens: Serum alcohol level Urine drug screen all negative [facility] protocol with banana bags x1 Ativan IV as needed seizure activities milieu manager referral 3. Depression/Anxiety: Fluoxetine Gabapentin 4. Hypertriglyceridemia: Fenofibrate Crestor GI ppx: PPI DVT ppx: Lovenox Code status: Full Prognosis: guarded Disposition: inpatient med surg tele; PT Time Spent With Patient Time: Total time spent is greater than 50% in coordination of care (as documented) at patient's floor/unit and/or counseling patient: Subsequent: Total time with patient: 35 - 49 minutes QUALITY VTE Deep Vein Thrombosis/Pulmonary Embolism Present on Admission: No
[2022-06-01] MEDS: ATORVASTATIN 10 MG TABLET PO SCH (21:11)
[2022-06-02] MEDS: PIPERACILLIN SODIUM/TAZOBACTAM 3.375 GM in DEXTROSE 5% IN WATER 50 ML IV SCH ×3 (00:07→12:38)
[2022-06-02] MEDS: IPRATROPIUM/ALBUTEROL 3 ML AMPUL.NEB NEB SCH ×2 (03:01→07:33)
[2022-06-02] MEDS: methylPREDNISolone SOD SUCC 125 MG/2 ML VIAL IV SCH (05:48)
[2022-06-02] MEDS: 0.9 % SODIUM CHLORIDE 10 ML SYRINGE IV SCH (05:48)
[2022-06-02 07:15] LABS: Basophils # (Auto) 0.01 K/mcL (0.00-0.30); Basophils % (Auto) 0.1 % (0.0-2.0); Eosinophils # (Auto) 0 K/mcL (0.00-0.70); Eosinophils % (Auto) 0 % (0.0-7.0); Hematocrit 33.6 % (40.1-51.0); Hemoglobin 11.1 g/dL (13.7-17.5); Lymphocytes # (Auto) 0.45 K/mcL (1.50-4.80); Lymphocytes % (Auto) 6.5 % (15.5-49.0); Mean Cell Volume 100.3 fL (80.0-100.0); Mean Platelet Volume 10.5 fL (8.8-12.5); Monocytes # (Auto) 0.59 K/mcL (0.10-0.90); Monocytes % (Auto) 8.6 % (1.0-12.0); Neutrophils % (Auto) 79.3 % (38.0-78.0); Platelet Count 222 K/mcL (140-440); RBC 3.35 M/mcL (4.63-6.08); Red Cell Distribution Width 12.6 % (11.5-14.5); WBC 6.9 K/mcL (4.5-11.0)
[2022-06-02 07:21] LABS: Phosphorous 1.7 mg/dL (2.5-4.5)
[2022-06-02 07:25] LABS: ALT/SGPT 29 U/L (<40); AST/SGOT 28 U/L (<40); Albumin 2.7 gm/dL (3.2-5.2); Albumin/Globulin Ratio 0.9 (1.0-2.3); Alkaline Phosphatase 62 U/L (39-117); Bilirubin,Total 0.2 mg/dL (0.1-1.0); Blood Urea Nitrogen 19 mg/dL (8-23); Calcium 8.7 mg/dL (8.6-10.4); Carbon Dioxide 30 mmol/L (22-30); Chloride 103 mmol/L (96-108); Globulin 2.9 gm/dL (2.2-3.7); Glomerular Filtration Rate 100; Glucose 141 mg/dL (70-105)
[2022-06-02] MEDS: GABAPENTIN 300 MG CAPSULE PO SCH ×2 (08:05→16:44)
[2022-06-02] MEDS: FOLIC ACID 1 MG TABLET PO SCH (08:05)
[2022-06-02] MEDS: FLUoxetine HCL 20 MG CAPSULE PO SCH (08:05)
[2022-06-02] MEDS: FENOFIBRATE 43 MG CAPSULE PO SCH (08:05)
[2022-06-02] MEDS: OMEPRAZOLE 20 MG CAPSULE PO SCH (08:06)
[2022-06-02] MEDS: ENOXAPARIN 40 MG/0.4 ML SYRINGE SQ SCH (08:06)
[2022-06-02] MEDS: THIAMINE 100 MG TABLET PO SCH (08:06)
[2022-06-02] MEDS: SENNOSIDES 1 TABLET PO SCH (08:06)
[2022-06-02] MEDS: MULTIVIT,THER IRON,CA,FA & MIN 1 TABLET PO SCH (08:06)
[2022-06-02] MEDS: DOCUSATE SODIUM 100 MG CAPSULE PO SCH (08:06)
[2022-06-02] MEDS: Budesonide-Glycopyr-Formoterol [Breztri] Inhaler INH SCH (08:07)
[2022-06-02] MEDS ORDERED: IPRATROPIUM/ALBUTEROL 3 ML AMPUL.NEB NEB PRN (10:00)
--- NOTE | 2022-06-02 15:34 | Discharge Summary ---
Discharge Provider Provider IMPORTANT FOLLOW-UP INFORMATION FOR PCP: Patient information: Note initiated : 06/02/22 at 3:32 pm Service Date, if different from initiated Date: [] Patient: Juan Oliver 61 y/o M admitted on 05/30/22 for Shortness of breath. Chief Complaint: [] Date of admission: 05/30/22 14:18 Discharge date: 06/02/22 Primary care physician: Sheila Travis DO Attending physician on admission: Zhou Carmen Consults: 05/30/22 Consult to Physician [CONS] Stat Comment: admit room T5 pneumonia Consulting Provider: Zhou Carmen Reason For Exam: Physician to Consult Attending physician on discharge: Zhou Carmen COURSE Hospital Course Hospital course: Mr. Oliver is a 61 year old M he is history of alcoholism, COPD, depression/anxiety, hyper triglyceridemia, presenting with 1 day history of acute onset shortness of breath, with associated productive cough and respiratory wheezings. No prior similar episode. Last night he had acute onset shortness of breath with associated productive cough and respiratory wheezings. He is complaining of yellow sputum productions. He denies any subjective fever, chills, or diaphoresis. He denies any chest pain or palpitations. He drink bourbon on a daily basis he drinks about 2 pints per day with last drink yesterday. He called EMS for acute onset shortness of breath and when EMS arrived, he was found to have oxygen saturations in the 50s. When he arrived to our ED during the middle of the night, he is oxygen saturations was found to be in the 80s. He was started on BiPAP. Chest x-ray showing right-sided pneumonia. [place] negative, COVID PCR pending. Serum alcohol level pending. Admission request was called for acute respiratory failure with hypoxi a with differential diagnosis of committee acquired pneumonia versus aspiration pneumonia with associated COPD exacerbations and potential alcohol withdrawal. 05/31: Patient is still on BiPAP, only tolerated off the BiPAP for couple minutes at a time multiple times yesterday and overnight. Current BiPAP setting 14/6 cmH2), RR 8, FiO2 35%. CoVID PCR negative. Pass swallowing evaluation, tolerating food fine. Blood cultures no growth to date. Afebrile overnight. CIWA score 0. Patient is feeling improving degree of shortness of breath. He is complaining of cough but denies any respiratory wheezing. He is complaining of shaking chills but denies any subjective fever or diaphoresis. He denies insomnia. He denies agitations or anxiety. He is showing mild bilateral head shakes. He denies any nausea vomiting. No reported seizures overnight. Continue to wean BiPAP as tolerated by the patient's. Continue vancomycin and Zosyn and IV fluid for pneumonia. Continue Solu-Medrol and DuoNeb breathing treatment for COPD exacerbations. Continue CIWA protocol. Pending physical therapy evaluation and treatment. We will keep the patient in the ICU. 06/01: CIWA score 3 as of this morning. Patient was BiPAP INDEPENDENT, and currently on room air. c/o improving degree of shortness of breath. Denies cough or wheezing at the morning. Transfer from ICU to [facility] telemetry. Continue CIWA protocol. MRSA screening negative: d/c Vancomycin. Saline lock. Continue Zosyn. Continue Solu-medrol. Continue DuoNEB. Physical therapy evaluation and treatment. 06/02: Discharged home with Rx sent to pharmacy. Follow up appointment with PCP arranged. All questions were answered prior to patient being physically discharged. Discharge diagnosis: COPD exacerbation, pneumonia Time Spent with Patient Time attestation: Total time spent providing and/or coordinating discharge services: Time spent: Less than 30 minutes EXAM Constitutional Vitals: Temp Pulse Resp BP Pulse Ox O2 Del Method O2 Flow Rate 36.4 C 93 H 20 113/69 81 L 2 06/02/22 13:52 06/02/22 13:52 06/02/22 13:52 06/02/22 13:52 06/02/22 14:00 06/02/22 14:00 06/02/22 14:00 General appearance: cooperative and no acute distress Head Head exam: Present atraumatic and normocephalic Eye Eye exam: Present EOMI and PERRL ENT ENT exam: Present mucous membranes moist, normal exam and normal external ear exam Additional comments: Nasal cannula in place Neck Neck exam: Present normal inspection; Absent lymphadenopathy, tenderness or thyromegaly Respiratory Respiratory exam: Present decreased breath sounds and wheezes; Absent accessory muscle use or respiratory distress Cardiovascular Cardiovascular exam: Present normal rate and rhythm; Absent JVD GI/Abdominal GI/Abdominal exam: Present normal bowel sounds and soft; Absent organomegaly or tenderness Rectal Rectal exam: Present deferred Extremities Exam Extremities exam: Present full ROM, normal capillary refill and normal inspection; Absent tenderness Neurological Exam Neurological exam: Present alert, CN II-XII intact and oriented X3; Absent motor sensory deficit Psychiatric Psychiatric exam: Present normal affect and normal mood; Absent anxious or depressed Skin Skin exam: Present dry and intact Discharge Data Data Completed and Pending Labs on day of discharge: Labs from last 24 hours 06/02/22 06/02/22 05:11 05:11 WBC 6.9 RBC 3.35 L Hgb 11.1 L Hct 33.6 L MCV 100.3 H MCH 33.1 MCHC 33.0 RDW 12.6 Plt Count 222 MPV 10.5 Immature Gran % (Auto) 5.5 H Neut % (Auto) 79.3 H Lymph % (Auto) 6.5 L [place] % (Auto) 8.6 Eos % (Auto) 0 Baso % (Auto) 0.1 Lymph # (Auto) 0.45 L [place] # (Auto) 0.59 Eos # (Auto) 0 Baso # (Auto) 0.01 Immature Gran # 0.38 H Absolute Neutrophils 5.45 Sodium 139 Potassium 3.8 Chloride 103 Carbon Dioxide 30 Anion Gap 6.0 L BUN 19 Creatinine 0.7 GFR Calculation 100 Glucose 141 H Calcium 8.7 Phosphorus 1.7 L Magnesium 2.2 Total Bilirubin 0.2 AST 28 ALT 29 Alkaline Phosphatase 62 Total Protein 5.6 L Albumin 2.7 L Globulin 2.9 Albumin/Globulin Ratio 0.9 L Preliminary micro results at discharge 05/30/22 07:00 Blood Culture - Preliminary Blood 05/30/22 06:53 Blood Culture - Preliminary Blood Discharge Plan Patient/Caregiver Discharge Instructions Activity: increase activity as tolerated Diet: Regular Diet Prescriptions: New dextromethorphan-guaifenesin 10-100 mg/5 mL Syrup 10 ml PO Q4HP PRN (Reason: Cough) Qty: 240 0RF amoxicillin-pot clavulanate [Augmentin] 500-125 mg tablet 1 tab PO BID Qty: 10 0RF Continued gabapentin 300 mg capsule 300 mg PO TID Qty: 60 0RF acamprosate 333 mg tablet,delayed release (DR/EC) 666 mg PO BID Qty: 120 0RF fenofibrate 54 mg tablet 54 mg PO QDAY Qty: 90 2RF albuterol sulfate 90 mcg/actuation HFA aerosol inhaler 2 puff PO Q4H PRN (Reason: for wheezing) Qty: 17 11RF Hold Instructions: pt. needs a f/u appt. ipratropium-albuterol 0.5 mg-3 mg(2.5 mg base)/3 mL solution for nebulization 3 ml inhalation QID PRN (Reason: shortness of breath or wheezing) Qty: 180 6RF Breztri Aerosphere 160-9-4.8 mcg/actuation HFA aerosol inhaler 2 inh inhalation BID Qty: 10.7 11RF Rx Instructions: Vigorously gargle, rinse, and spit after each use hydrocodone-acetaminophen 5-325 mg tablet 0.5 tab PO QDAY PRN (Reason: pain) Qty: 30 0RF diphenhydramine HCl [Benadryl] 25 mg Capsule 50 mg PO HSP PRN (Reason: Sleep) omeprazole 20 mg Capsule,Delayed Release(Dr/Ec) 20 mg PO DAILY fluoxetine 20 mg Tablet 40 mg PO QDAY rosuvastatin [Crestor] 5 mg tablet 5 mg PO QDAY Qty: 90 3RF Follow Up Plan Follow up with: Sheila Travis DO [Primary Care Provider] - Patient Disposition: Home, Self-Care Rehab Potential: Fair I certify that the patient requires SNF services: No Overall status at discharge: patient is progressing back to baseline Discharge Orders: Discharge Order (Routine); Ordered 06/02/22 Ordered By: Zhou SAMUEL VTE Deep Vein Thrombosis/Pulmonary Embolism Present on Admission: No
[2022-06-03] MEDS ORDERED: FLUoxetine HCL 20 MG CAPSULE PO SCH (09:00)
== END 2022-06-02 16:45 | disposition home or self-care (01) | DRG 177 ==
LOC: ED 06:25 → ICU 14:18 → MEDSUR 06-01 13:33
PROVIDERS: ADMIT Internal Medicine; ATTEND Internal Medicine

== ENCOUNTER 2022-09-18 10:39 | Inpatient (IN) ==
[2022-09-18] MEDS ORDERED: IPRATROPIUM/ALBUTEROL 3 ML AMPUL.NEB NEB ONE (10:50)
[2022-09-18] MEDS ORDERED: ALBUTEROL SULFATE 2.5 MG/3 ML NEBULIZER NEB ONE (10:50)
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
[2022-09-18 10:54] LABS: POC Calcium, Ionized 1.07 (1.16-1.32); POC Creatinine 1.1 (0.6-1.2); POC Potassium 3.4 (3.3-5.1)
--- NOTE | 2022-09-18 11:25 | XRay Report ---
HISTORY: COPD, short of breath, former smoker FINDINGS: Lungs are mildly hyperinflated due to emphysema. There is mild pulmonary fibrosis in the right apex. There is no evidence of pneumonia, mass or congestive heart failure. The heart size is normal. There has been little change since 07/13/22. IMPRESSION: Stable COPD Interpreted and Authenticated by: Neri Alonso 09/18/22
[2022-09-18 11:41] LABS: Basophils # (Auto) 0.06 K/mcL (0.00-0.30); Basophils % (Auto) 0.5 % (0.0-2.0); Eosinophils % (Auto) 0.9 % (0.0-7.0); Hematocrit 43.9 % (40.1-51.0); Lymphocytes # (Auto) 2.84 K/mcL (1.50-4.80); Lymphocytes % (Auto) 25.8 % (15.5-49.0); Mean Cell Volume 95.4 fL (80.0-100.0); Mean Corpuscular HGB Conc 34.2 g/dL (31.0-36.0); Mean Platelet Volume 9.9 fL (8.8-12.5); Monocytes # (Auto) 1.22 K/mcL (0.10-0.90); Monocytes % (Auto) 11.1 % (1.0-12.0); Neutrophils % (Auto) 61.2 % (38.0-78.0); Platelet Count 357 K/mcL (140-440); Red Cell Distribution Width 12.5 % (11.5-14.5)
--- NOTE | 2022-09-18 14:58 | EKG ---
[facility] Test Date: 2022-09-18 Pat Name: Juan Oliver Department: ED Room: Gender: Male Phone Triage Specialist: ALMAZ : 1960 Requested By: Darrius Griffin Order Number: [id number] Reading MD: Chris Alonso M.D. Measurements Intervals [place] Rate: 104 P: 71 DC: 141 QRS: -59 QRSD: 101 T: 30 QT: 362 QTc: 477 Interpretive Statements Sinus tachycardia Consider left atrial enlargement Incomplete RBBB and LAFB Borderline low voltage, extremity leads Electronically Signed On 09-18-2022 14:57:30 PDT by Chris Alonso M.D. /store/M0/[id number]
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
[2022-09-18] MEDS ORDERED: POTASSIUM CHLORIDE 20 MEQ TABLET PO ONE (15:30)
[2022-09-18] MEDS ORDERED: SENNOSIDES 1 TABLET PO SCH (15:30)
[2022-09-18] MEDS ORDERED: ACETAMINOPHEN 325 MG TABLET PO PRN (15:30)
[2022-09-18] MEDS ORDERED: ONDANSETRON 4 MG/2 ML VIAL IV PRN (15:30)
[2022-09-18] MEDS ORDERED: ALBUTEROL SULFATE 2.5 MG/3 ML NEBULIZER NEB PRN (15:30)
[2022-09-18] MEDS ORDERED: methylPREDNISolone SOD SUCC 125 MG/2 ML VIAL IV ONE (15:30)
[2022-09-18] MEDS ORDERED: LACTULOSE 20 GM/30 ML ORAL.SOL PO PRN (15:30)
[2022-09-18] MEDS: IPRATROPIUM/ALBUTEROL 3 ML AMPUL.NEB NEB SCH ×3 (15:48→22:21)
[2022-09-18] MEDS: cefTRIAXone 1 GM VIAL IV SCH (15:54)
[2022-09-18] MEDS: LORazepam 2 MG/ML VIAL IV PRN ×2 (16:24→19:23)
[2022-09-18] MEDS ORDERED: IOPAMIDOL 100 ML BOTTLE IV ONE (17:00)
--- NOTE | 2022-09-18 17:25 | Cat Scan Report ---
History: Dyspnea tachycardia and elevated serum d-dimer level TECHNIQUE: Following injection of intravenous nonionic contrast the chest was imaged during the pulmonary arterial phase. Sagittal, coronal and axial MIPS images were created. The radiation exposure was limited using dose reduction technology. FINDINGS: The pulmonary arteries are normal in caliber and there are no intraluminal filling defects. The aorta is normal in caliber and there is minimal plaque formation of the arch. Heart size is normal. There are few calcified plaques in the coronary arteries. Mild emphysema is present in both lungs with the greatest involvement in the lower lobes. There is mucus in the bronchus intermedius. The wall of the distal bronchus intermedius has asymmetric focal wall thickening causing mild narrowing of the lumen. There is bronchitis in both lower lobes, right worse than left. A streaky infiltrate is seen in the superior segment of the right lower lobe. No lobar consolidation is present. There is no evidence of a parenchymal mass.. No pleural effusion is present. There are no abnormally enlarged lymph nodes. IMPRESSION: No evidence pulmonary emboli. Mild pneumonia in the superior segment of the right lower lobe Endobronchial lesion in the bronchus intermedius. Focal wall thickening may be due to inflammation or early neoplasm. Bronchoscopy should be considered. Dr. Alexander was called with the report Interpreted and Authenticated by: Neri Alonso 09/18/22
[2022-09-18] MEDS: NICOTINE 7 MG PATCH TOPICAL SCH (18:18)
[2022-09-18] MEDS ORDERED: AZITHROMYCIN 500 MG in DEXTROSE 5% IN WATER 250 ML IV SCH (19:15)
[2022-09-18] MEDS: 0.9 % SODIUM CHLORIDE 10 ML SYRINGE IV SCH ×2 (20:12→20:13)
[2022-09-19] MEDS: 0.9 % SODIUM CHLORIDE 10 ML SYRINGE IV SCH ×2 (05:22→05:23)
[2022-09-19 06:13] LABS: ALT/SGPT 13 U/L (<40); AST/SGOT 14 U/L (<40); Albumin 3.8 gm/dL (3.2-5.2); Albumin/Globulin Ratio 1.4 (1.0-2.3); Alkaline Phosphatase 78 U/L (39-117); Bilirubin,Direct < 0.2 mg/dL (0-0.3); Bilirubin,Total 0.3 mg/dL (0.1-1.0); Blood Urea Nitrogen 14 mg/dL (8-23); Calcium 9.2 mg/dL (8.6-10.4); Carbon Dioxide 28 mmol/L (22-30); Chloride 99 mmol/L (96-108); Globulin 2.8 gm/dL (2.2-3.7); Glomerular Filtration Rate 100; Glucose 189 mg/dL (70-105); Lactate Dehydrogenase 183 U/L (135-225); Phosphorous 2.1 mg/dL (2.5-4.5); Triglycerides 119 mg/dL (<150); Uric Acid 5.4 mg/dL (2.5-8.0)
[2022-09-19] MEDS: IPRATROPIUM/ALBUTEROL 3 ML AMPUL.NEB NEB SCH (07:18)
[2022-09-19] MEDS ORDERED: chlordiazePOXIDE 25 MG CAPSULE PO ONE (08:57)
[2022-09-19] MEDS ORDERED: methylPREDNISolone SOD SUCC 125 MG/2 ML VIAL IV SCH (09:00)
[2022-09-19] MEDS ORDERED: FLUoxetine HCL 20 MG CAPSULE PO SCH (09:00)
[2022-09-19] MEDS ORDERED: ENOXAPARIN 40 MG/0.4 ML SYRINGE SQ SCH (09:00)
[2022-09-19] MEDS ORDERED: GLYCOPYRROLATE INH SCH (09:00)
[2022-09-19] MEDS ORDERED: [UNRECOGNIZED DRUG - OTHER] INH SCH (09:00)
[2022-09-19] MEDS ORDERED: TADALAFIL 5 MG PO SCH (09:00)
[2022-09-19] MEDS ORDERED: GABAPENTIN 300 MG CAPSULE PO SCH (09:00)
[2022-09-19] MEDS ORDERED: FORMOTEROL INH SCH (09:00)
[2022-09-19] MEDS ORDERED: OMEPRAZOLE 20 MG CAPSULE PO SCH (09:00)
[2022-09-19] MEDS ORDERED: FENOFIBRATE 43 MG CAPSULE PO SCH (09:00)
[2022-09-19] MEDS ORDERED: ATORVASTATIN 10 MG TABLET PO SCH (09:00)
[2022-09-19] MEDS ORDERED: BUDESONIDE INH SCH (09:00)
--- NOTE | 2022-09-19 09:13 | Discharge Summary ---
Discharge Provider Provider IMPORTANT FOLLOW-UP INFORMATION FOR PCP: Patient information: Note initiated : 09/19/22 at 9:08 am Service Date, if different from initiated Date: [] Patient: Juan Oliver 62 y/o M admitted on 09/18/22 for shortness of breath. Chief Complaint: [] Date of admission: 09/18/22 15:21 Discharge date: 09/19/22 Primary care physician: Sheila Travis DO Consults: 09/18/22 Consult to Physician [CONS] Stat Comment: Consulting Provider: Zafar Alexander Reason For Exam: Physician to Consult COURSE Hospital Course Hospital course: Mr. Oliver is a 62 year old Male with a history of COPD with an oxygen requirement of 4 L/min, alcohol use disorder, prostate cancer status post radiation therapy in 2021, right total knee arthroplasty about 4 weeks prior to admission who presented to the emergency department for shortness of breath. The patient says about 7 days ago he developed increasing shortness of breath, chills, subjective fevers and a new cough productive of yellow sputum. The symptoms persisted for about 7 days, he notified the pulmonology department and was told to go to the emergency department for further evaluation. In the emergency department, the patient is requiring 3 to 4 L/min nasal cannula while at rest however desaturated with minimal activity. A chest x-ray did not show any new infiltrates or other acute changes. The patient was afebrile in the emergency department. CBC did not show any leukocytosis or any other concerning changes. Chemistry panel was also fairly unremarkable. Venous blood gas showed a normal pH of 7. 3 9, PCO2 was normal at 48.3. Hospital medicine was consulted to admit the patient for COPD exacerbation. 5/6 Vital stable overnight, yesterday evening a D-dimer was obtained and elevated. A CTA chest did not show any evidence of pulmonary embolism however there was mild pneumonia noted in the superior segment of the right lower lobe. An endobronchial lesion was seen in the bronchus intermedius, focal wall thickening could be due to inflammation or early neoplasm. Patient was started on antibiotics with ceftriaxone and azithromycin in addition to the Solu-Medrol and scheduled bronchodilators started at admission. This morning, the patient was able to ambulate independently in the hallway, felt short of breath upon return. This is a significant improvement from yesterday when he felt short of breath after taking a few steps to the bathroom. The patient is at his baseline oxygen requirement today, significant improvement in bilateral wheezing. He feels like he is ready to discharge to home. Will discharge to home with a 5-day treatment course of prednisone 40 mg daily, 5-day treatment course of levofloxacin. The patient has sufficient bronchodilator prescriptions and refills. Additionally, the patient appears to be in mild alcohol withdrawal so we will provide a prescription for Librium as needed for alcohol withdrawal symptoms. The patient was instructed not to consume alcohol while taking Librium. Follow-up with pulmonology after discharge to consider bronchoscopy for the endobronchial lesion noted on the CTA chest. Physical exam Head: Atraumatic, normal inspection. Eyes: normal appearance, no scleral icterus. Neck: full ROM Respiratory: 3 L/min nasal cannula oxygen supplementation, diffuse bilateral expiratory wheezing. Cardiovascular: normal rate and rhythm, S1, S2. GI/Abdominal: soft, nontender, no guarding. Extremities: full range of motion, nontender. Neurological: CN II-XII intact, intact motor, intact sensation. Psychiatric: normal mood. Skin: warm, normal color Discharge diagnosis: Severe COPD exacerbation Secondary discharge diagnosis: Community-acquired pneumonia Possible endobronchial lesion Time Spent with Patient Time attestation: Total time spent providing and/or coordinating discharge services: Time spent: Less than 30 minutes EXAM Constitutional Vitals: Temp Pulse Resp BP Pulse Ox O2 Del Method O2 Flow Rate 98.9 F 95 H 20 128/78 94 Nasal Cannula 4 09/19/22 08:02 09/19/22 08:02 09/19/22 07:24 09/19/22 08:02 09/19/22 08:02 09/19/22 08:00 09/19/22 08:00 Discharge Data Data Completed and Pending Labs on day of discharge: Labs from last 24 hours 09/19/22 09/18/22 09/18/22 04:51 13:59 11:01 WBC 11.0 RBC 4.60 L Hgb 15.0 Hct 43.9 POC Hct MCV 95.4 MCH 32.6 MCHC 34.2 RDW 12.5 Plt Count 357 MPV 9.9 Immature Gran % (Auto) 0.5 Neut % (Auto) 61.2 Lymph % (Auto) 25.8 [place] % (Auto) 11.1 Eos % (Auto) 0.9 Baso % (Auto) 0.5 Lymph # (Auto) 2.84 [place] # (Auto) 1.22 H Eos # (Auto) 0.10 Baso # (Auto) 0.06 Immature Gran # 0.05 Absolute Neutrophils 6.73 D-Dimer 2.40 H POC VBG pH POC VBG pCO2 at Temp POC VBG pO2 POC VBG HCO3 POC VBG Total CO2 POC Venous O2 Sat POC VBG Base Excess VBG Lactic Acid POC Sodium Sodium 135 POC Potassium Potassium 4.3 POC Chloride Chloride 99 Carbon Dioxide 28 POC Total CO2 Anion Gap 8.0 POC BUN BUN 14 Creatinine 0.7 POC Creatinine GFR Calculation 100 Glucose 189 H POC Glucose Uric Acid 5.4 Calcium 9.2 POC WB Ioniz Calcium Phosphorus 2.1 L Magnesium 2.3 Total Bilirubin 0.3 Direct Bilirubin < 0.2 GGT 25 AST 14 ALT 13 Alkaline Phosphatase 78 Lactate Dehydrogenase 183 Total Protein 6.6 Albumin 3.8 Globulin 2.8 Albumin/Globulin Ratio 1.4 Triglycerides 119 09/18/22 09/18/22 10:53 10:51 WBC RBC Hgb Hct POC Hct 46.0 MCV MCH MCHC RDW Plt Count MPV Immature Gran % (Auto) Neut % (Auto) Lymph % (Auto) [place] % (Auto) Eos % (Auto) Baso % (Auto) Lymph # (Auto) [place] # (Auto) Eos # (Auto) Baso # (Auto) Immature Gran # Absolute Neutrophils D-Dimer POC VBG pH 7.39 POC VBG pCO2 at Temp 48.3 POC VBG pO2 18 L POC VBG HCO3 29.4 H POC VBG Total CO2 31.0 H POC Venous O2 Sat 26.0 L POC VBG Base Excess 5.0 H* VBG Lactic Acid 1.8 POC Sodium 134 Sodium POC Potassium 3.4 Potassium POC Chloride 95 L Chloride Carbon Dioxide POC Total CO2 29.0 Anion Gap POC BUN 18 BUN Creatinine POC Creatinine 1.1 GFR Calculation Glucose POC Glucose 98 Uric Acid Calcium POC WB Ioniz Calcium 1.07 L Phosphorus Magnesium Total Bilirubin Direct Bilirubin GGT AST ALT Alkaline Phosphatase Lactate Dehydrogenase Total Protein Albumin Globulin Albumin/Globulin Ratio Triglycerides Discharge Plan Patient/Caregiver Discharge Instructions Activity: increase activity as tolerated Diet: Regular Diet Prescriptions: New prednisone 20 mg tablet 40 mg PO QDAY 5 Days Qty: 10 0RF levofloxacin 750 mg tablet 750 mg PO QDAY Qty: 5 0RF chlordiazepoxide HCl 25 mg capsule 25 mg PO Q6HP PRN (Reason: alcohol withdrawal) Qty: 20 0RF Rx Instructions: As needed for alcohol withdrawal symptoms until alcohol withdrawal symptoms have resolved. Do not consume alcohol while taking this medication. Continued gabapentin 300 mg capsule 300 mg PO TID Qty: 90 0RF fluoxetine 20 mg tablet 20 mg PO QDAY Qty: 90 0RF fenofibrate 54 mg tablet 54 mg PO QDAY Qty: 90 0RF albuterol sulfate 90 mcg/actuation HFA aerosol inhaler 2 puff PO Q4H PRN (Reason: for wheezing) Qty: 17 11RF Hold Instructions: pt. needs a f/u appt. ipratropium-albuterol 0.5 mg-3 mg(2.5 mg base)/3 mL solution for nebulization 3 ml inhalation QID PRN (Reason: shortness of breath or wheezing) Qty: 180 6RF Breztri Aerosphere 160-9-4.8 mcg/actuation HFA aerosol inhaler 2 inh inhalation BID Qty: 10.7 11RF Rx Instructions: Vigorously gargle, rinse, and spit after each use omeprazole 20 mg Capsule,Delayed Release(Dr/Ec) 20 mg PO DAILY rosuvastatin [Crestor] 5 mg tablet 5 mg PO QDAY Qty: 90 3RF tadalafil 5 mg tablet 5 mg PO QDAY Qty: 90 3RF Follow Up Plan Follow up with: Da Herrera MD [Physician] - (Post hospital follow-up for endobronchial lesion seen in the bronchus intermedius on CT chest from 09/18/2022. Consider bronchoscopy.) Sheila Travis DO [Primary Care Provider] - Patient Disposition: Home, Self-Care Prognosis: Fair Overall status at discharge: patient is progressing back to baseline Discharge Orders: Discharge Order (Routine); Ordered 09/19/22 Ordered By: Zafar Alexander
[2022-09-19] MEDS: NICOTINE 7 MG PATCH TOPICAL SCH (09:45)
[2022-09-19] MEDS: cefTRIAXone 1 GM VIAL IV SCH (09:46)
[2022-09-19] MEDS: LORazepam 2 MG/ML VIAL IV PRN (10:09)
[2022-09-20] MEDS ORDERED: PNEUMOCOCCAL 23-VAL P-SAC VAC 0.5 ML SYRINGE IM ONE (10:00)
== END 2022-09-19 11:30 | disposition home or self-care (01) | DRG 190 ==
LOC: ED 10:39 → ICU 15:21
PROVIDERS: ADMIT Internal Medicine; ATTEND Internal Medicine

== ENCOUNTER 2025-04-17 18:03 | Inpatient (IN) ==
[2025-04-17] MEDS ORDERED: IOPAMIDOL 100 ML BOTTLE IV ONE (18:04)
[2025-04-17 18:58] LABS: Basophils # (Auto) 0.09 K/mcL (0.00-0.30); Basophils % (Auto) 1.0 % (0.0-2.0); Eosinophils # (Auto) 0.29 K/mcL (0.00-0.70); Eosinophils % (Auto) 3.2 % (0.0-7.0); Hematocrit 44.1 % (40.1-51.0); Hemoglobin 14.5 g/dL (13.7-17.5); Lymphocytes # (Auto) 3.74 K/mcL (1.50-4.80); Lymphocytes % (Auto) 40.9 % (15.5-49.0); Mean Corpuscular HGB Conc 32.9 g/dL (31.0-36.0); Monocytes # (Auto) 1.24 K/mcL (0.10-0.90); Monocytes % (Auto) 13.6 % (1.0-12.0); Neutrophils % (Auto) 40.8 % (38.0-78.0); Platelet Count 232 K/mcL (140-440); RBC 4.30 M/mcL (4.63-6.08); WBC 9.1 K/mcL (4.5-11.0)
[2025-04-17 19:11] LABS: ALT/SGPT 322 U/L (<40); AST/SGOT 199 U/L (<40); Albumin 4.1 gm/dL (3.2-5.2); Albumin/Globulin Ratio 1.6 (1.0-2.3); Alcohol,Blood 0.295 g/dL (<0.010); Alkaline Phosphatase 87 U/L (39-117); Anion Gap 12.0 (8.0-16.0); Bilirubin,Total 0.4 mg/dL (0.1-1.0); Blood Urea Nitrogen 11 mg/dL (8-23); Calcium 8.8 mg/dL (8.6-10.4); Carbon Dioxide 28 mmol/L (22-30); Chloride 101 mmol/L (96-108); Globulin 2.6 gm/dL (2.2-3.7); Glucose 89 mg/dL (70-105); Potassium 3.7 mmol/L (3.3-5.1); Sodium 141 mmol/L (133-145)
[2025-04-17] MEDS: DEXTROSE 5%-LR 1,000 ML IV SCH (19:18)
[2025-04-17] MEDS: cefTRIAXone 1 GM VIAL IV ONE ×2 (19:40→22:39)
[2025-04-17] MEDS: IPRATROPIUM/ALBUTEROL 3 ML AMPUL.NEB NEB ONE ×2 (20:03→21:51)
[2025-04-17] MEDS: 0.9 % SODIUM CHLORIDE 1,000 ML IV ONE (20:09)
[2025-04-17] MEDS: DOXYCYCLINE 100 MG in DEXTROSE 5% IN WATER 100 ML IV ONE (20:16)
[2025-04-17 20:35] LABS: Bacteria,Urine 0 /hpf (0); Bilirubin,Urine NEGATIVE (Negative); Color,Urine LT. YELLOW; Glucose,Urine (UA) NEGATIVE (Negative); Ketones,Urine NEGATIVE (Negative); Leukocyte Esterase,Urine NEGATIVE /uL (Negative); PH,Urine 5.5 (5.0-9.0); Protein,Urine NEGATIVE (Negative); Specific Gravity,Urine <= 1.005 (1.000-1.035); Urobilinogen,Urine 0.2 mg/dL
[2025-04-17 21:19] LABS: Barbiturate Screen,Urine None detected; Benzodiazepines Screen,Urine None detected; Fentanyl, Urine Screen None Detected; Opiate Screen,Urine None detected; Oxycodone, Urine Screen None detected; Phencyclidine Screen,Urine None detected
[2025-04-17 21:57] LABS: Hematocrit 36.6 % (40.1-51.0); Hemoglobin 12.0 g/dL (13.7-17.5)
[2025-04-17] MEDS: AZITHROMYCIN 500 MG in DEXTROSE 5% IN WATER 250 ML IV ONE (22:38)
[2025-04-17 23:13] LABS: INR 0.8 (0.9-1.1); Partial Thromboplastin Time 26.8 sec (20.0-37.0); Prothrombin Time 11.8 sec (11.9-14.5)
[2025-04-18] MEDS: DEXTROSE 5%-NS W/20MEQ KCL 1,000 ML IV SCH (00:58)
[2025-04-18] MEDS: ACETAMINOPHEN 325 MG TABLET PO PRN (01:03)
[2025-04-18 06:35] LABS: Basophils # (Auto) 0.02 K/mcL (0.00-0.30); Basophils % (Auto) 0.3 % (0.0-2.0); Eosinophils # (Auto) 0.16 K/mcL (0.00-0.70); Eosinophils % (Auto) 2.8 % (0.0-7.0); Hematocrit 35.6 % (40.1-51.0); Hemoglobin 11.3 g/dL (13.7-17.5); Lymphocytes # (Auto) 1.04 K/mcL (1.50-4.80); Lymphocytes % (Auto) 18.1 % (15.5-49.0); Mean Corpuscular HGB Conc 31.7 g/dL (31.0-36.0); Monocytes # (Auto) 1.03 K/mcL (0.10-0.90); Monocytes % (Auto) 17.9 % (1.0-12.0); Neutrophils % (Auto) 60.4 % (38.0-78.0); Platelet Count 175 K/mcL (140-440); RBC 3.32 M/mcL (4.63-6.08); WBC 5.7 K/mcL (4.5-11.0)
[2025-04-18 07:00] LABS: ALT/SGPT 222 U/L (<40); AST/SGOT 118 U/L (<40); Albumin 3.2 gm/dL (3.2-5.2); Albumin/Globulin Ratio 1.6 (1.0-2.3); Alkaline Phosphatase 65 U/L (39-117); Anion Gap 11.0 (8.0-16.0); Bilirubin,Direct 0.2 mg/dL (<0.3); Bilirubin,Total 0.4 mg/dL (0.1-1.0); Blood Urea Nitrogen 8 mg/dL (8-23); Calcium 7.8 mg/dL (8.6-10.4); Carbon Dioxide 28 mmol/L (22-30); Chloride 103 mmol/L (96-108); Globulin 2.0 gm/dL (2.2-3.7); Glucose 97 mg/dL (70-105); Phosphorous 2.8 mg/dL (2.5-4.5); Potassium 3.9 mmol/L (3.3-5.1); Sodium 142 mmol/L (133-145); Triglycerides 89 mg/dL (<150); Uric Acid 5.8 mg/dL (2.5-8.0)
[2025-04-18] MEDS: IPRATROPIUM/ALBUTEROL 3 ML AMPUL.NEB NEB PRN (07:58)
[2025-04-18] MEDS ORDERED: DOXYCYCLINE 100 MG in DEXTROSE 5% IN WATER 100 ML IV SCH (08:00)
[2025-04-18] MEDS ORDERED: POLYETHYLENE GLYCOL 3350 17 GM PACKET PO PRN (08:27)
[2025-04-18] MEDS ORDERED: METOCLOPRAMIDE 10 MG/2 ML VIAL IV PRN (08:27)
[2025-04-18] MEDS ORDERED: SENNOSIDES 1 TABLET PO PRN (08:27)
[2025-04-18] MEDS ORDERED: ONDANSETRON 4 MG/2 ML VIAL IV PRN (08:27)
[2025-04-18] MEDS ORDERED: POTASSIUM CHLORIDE 40 MEQ in DEXTROSE 5% IN WATER 500 ML IV PRN (08:27)
[2025-04-18] MEDS ORDERED: MAGNESIUM SULFATE 2 GM/50 ML BAG IV PRN (08:27)
[2025-04-18] MEDS ORDERED: POTASSIUM CHLORIDE 20 MEQ TABLET PO PRN ×2 (08:27)
[2025-04-18] MEDS ORDERED: IPRATROPIUM/ALBUTEROL 3 ML AMPUL.NEB NEB PRN (08:32)
[2025-04-18] MEDS: FOLIC ACID 1 MG TABLET PO SCH (09:24)
[2025-04-18] MEDS: guaiFENesin 600 MG TAB.SR.12H PO SCH (09:24)
[2025-04-18] MEDS: THIAMINE 100 MG in 0.9 % SODIUM CHLORIDE 50 ML IV SCH (09:26)
[2025-04-18] MEDS: OMEPRAZOLE 20 MG CAPSULE PO SCH (09:26)
[2025-04-18] MEDS: DOCUSATE SODIUM 100 MG CAPSULE PO SCH (09:26)
[2025-04-18] MEDS: DOXYCYCLINE 100 MG in DEXTROSE 5% IN WATER 100 ML IV SCH (09:27)
[2025-04-18] MEDS: SOLIFENACIN 10 MG PO SCH (09:43)
[2025-04-18 09:46] LABS: Hematocrit 38.2 % (40.1-51.0); Hemoglobin 12.5 g/dL (13.7-17.5)
[2025-04-18] MEDS: THIAMINE 100 MG/ML VIAL ONE (09:51)
[2025-04-18] MEDS ORDERED: DIAZEPAM 10 MG/2 ML SYRINGE IV PRN (10:08)
[2025-04-18] MEDS ORDERED: FOLIC ACID 1 MG TABLET PO SCH (10:10)
[2025-04-18] MEDS: IPRATROPIUM/ALBUTEROL 3 ML AMPUL.NEB NEB SCH (10:56)
[2025-04-18] MEDS: MULTIVIT,THER IRON,CA,FA & MIN 1 TABLET PO SCH (11:25)
[2025-04-18] MEDS: ETHYL ALCOHOL 30 ML ORAL.SOL PO SCH (13:11)
[2025-04-18] MEDS: GABAPENTIN 300 MG CAPSULE PO SCH (13:11)
[2025-04-18] MEDS: 0.9 % SODIUM CHLORIDE 10 ML SYRINGE IV SCH ×2 (13:16)
[2025-04-18] MEDS: cefTRIAXone 1 GM VIAL IV SCH (18:52)
[2025-04-18] MEDS: MELATONIN 3 MG TABLET PO PRN (21:21)
[2025-04-18] MEDS: ATORVASTATIN 10 MG TABLET PO SCH (21:21)
[2025-04-19] MEDS: IPRATROPIUM/ALBUTEROL 3 ML AMPUL.NEB NEB PRN (06:11)
[2025-04-19 06:14] LABS: Hematocrit 32.6 % (40.1-51.0); Hemoglobin 11.0 g/dL (13.7-17.5)
[2025-04-19 06:43] LABS: ALT/SGPT 166 U/L (<40); AST/SGOT 50 U/L (<40); Albumin 3.4 gm/dL (3.2-5.2); Albumin/Globulin Ratio 1.5 (1.0-2.3); Alkaline Phosphatase 66 U/L (39-117); Anion Gap 7.0 (8.0-16.0); Bilirubin,Direct 0.3 mg/dL (<0.3); Bilirubin,Total 0.4 mg/dL (0.1-1.0); Blood Urea Nitrogen 6 mg/dL (8-23); Calcium 8.7 mg/dL (8.6-10.4); Carbon Dioxide 29 mmol/L (22-30); Chloride 101 mmol/L (96-108); Globulin 2.3 gm/dL (2.2-3.7); Glucose 185 mg/dL (70-105); Phosphorous 2.4 mg/dL (2.5-4.5); Potassium 4.3 mmol/L (3.3-5.1); Sodium 137 mmol/L (133-145); Triglycerides 53 mg/dL (<150); Uric Acid 3.5 mg/dL (2.5-8.0)
[2025-04-19] MEDS: FOLIC ACID 1 MG TABLET PO SCH (08:17)
[2025-04-19] MEDS: IPRATROPIUM/ALBUTEROL 3 ML AMPUL.NEB NEB SCH (12:22)
[2025-04-20 10:09] LABS: Hematocrit 36.8 % (40.1-51.0); Hemoglobin 12.1 g/dL (13.7-17.5)
[2025-04-20 11:39] VITALS: TEMP 98.4; O2SAT 90
== END 2025-04-20 12:55 | disposition home or self-care (01) | DRG 896 ==
LOC: ED 18:03 → MEDSUR 18:03
PROVIDERS: ADMIT Internal Medicine; ATTEND Internal Medicine